=== PATIENT | female | born 1965 | race Hispanic/Latino ===

== ENCOUNTER 2019-09-19 18:16 | Emergency (ER) | payer SELFPAY ==
[~2019-09-19 18:16] MED LIST: Iopamidol 370 76% 100 ML VIAL ONE
[2019-09-19 18:56] LABS: #Basophils 0.1 thou/uL (0.0-0.2); #Eosinphils 0.2 thou/uL (0.0-0.7); #Lymphocytes 2.4 thou/uL (1.20-3.40); #Monocytes 0.4 thou/uL (0.11-0.59); #Neutrophils 3.6 thou/uL (1.40-6.50); %Basophils 0.9 % (0.0-1.0); %Eosinophils 2.9 % (0.0-10.0); %Lymphocytes 36.7 % (21.0-51.0); %Monocytes 5.4 % (0.0-10.0); %Neutrophils 54.1 % (42.0-75.0); Hemoglobin 15.5 g/dL (12.0-16.0); Mean Corpuscular HGB CONC 31.6 g/dL (32.0-36.0); Mean Corpuscular Hemoglobin 27.5 pg (27.0-31.0); Mean Corpuscular Volume 87.1 fL (78.0-98.0); Mean Platelet Volume 8.8 fL (7.4-10.4); Platelet Count 251 thou/uL (130-400); RBC Distribution Width 12.3 % (11.5-14.5); Red Blood Cell (RBC) Count 5.63 mill/uL (4.20-5.40); White Blood Cell (WBC) Count 6.7 thou/uL (4.8-10.8)
--- NOTE | 2019-09-19 19:06 | RAD ---
EXAM: Chest 2 views: HISTORY: Dyspnea COMPARISON: None. FINDINGS: There is a normal-sized cardiomediastinal silhouette. There is no evidence of consolidation, mass, or pleural effusion. The bones are unremarkable. IMPRESSION: No evidence of acute cardiopulmonary disease
[2019-09-19 19:19] LABS: ALT (SGPT) 26 U/L (8-55); AST (SGOT) 18 U/L (5-34); Albumin 4.4 g/dL (3.5-5.0); Alkaline Phosphatase 96 U/L (40-110); Anion Gap 13 mmol/L (10-20); BUN (Urea Nitrogen) 13 mg/dL (9.8-20.1); Bilirubin, Total 0.5 mg/dL (0.2-1.2); Calc. Creatinine Clearance 0 mL/min (70-130); Calcium 10.2 mg/dL (7.8-10.44); Carbon Dioxide 25 mmol/L (22-29); Chloride 107 mmol/L (98-107); Estimated GFR-MDRD 82; Globulin 2.8 g/dL (2.4-3.5); Glucose 157 mg/dL (70-105); Protein, Total 7.2 g/dL (6.0-8.3); Sodium 141 mmol/L (136-145)
--- NOTE | 2019-09-19 20:23 | CT ---
EXAM: CT ANGIOGRAM OF THE CHEST: 09/19/19 HISTORY: Dyspnea. Elevated D-dimer. COMPARISON: None. TECHNIQUE: CT angiogram of the chest is performed in the axial plane. Three dimensional reformatted images are s ubmitted for interpretation. FINDINGS: Lower neck and axilla: No masses or lymphadenopathy. Mediastinum: No mass, lymphadenopathy or hematoma. Heart: Normal heart size. No significant pericardial fluid. Aorta: The visualized aorta has a normal caliber. No periaortic fat stranding. No significant pericardial fluid. No significant coronary artery calcification. Upper abdomen: Visualized solid organs have appropriate attenuation and enhancement. Trachea and central bronchi: Patent. Pleural spaces: No effusion. No pneumothorax. Lungs: No masses or consolidation. Nodules: No suspicious nodules in either lung. Osseous structures: Old right rib fractures with callus formation. Pulmonary arteries: Appropriate enhancement of the pulmonary arterial system to the level of the segmental arteries. No f illing defect to suggest thromboembolism. 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 Aneurysm measures 1.3 x 1.1 cm. Additional aneurysm is noted in the level of the splenic hilum. Calcified aneurysm measure s 1.1 x 0.9 cm. IMPRESSION: No evidence of pulmonary artery embolism to the level of the segmental arteries. POS: PPP
== END 2019-09-19 20:40 | disposition home or self-care (01) ==
LOC: NAV ERS 18:16
DX: R06.00 Dyspnea, unspecified (principal); E03.9 Hypothyroidism, unspecified; E78.5 Hyperlipidemia, unspecified; F32.9 Major depressive disorder, single episode, unspecified; Z79.899 Other long term (current) drug therapy
CPT/HCPCS: 71046; 71275; 80053; 83880; 84484; 85025; 85379; 87081; 87430; 87804; 93005; 94760; Q9967